=== PATIENT | female | born 1985 ===

== ENCOUNTER 2020-03-29 22:19 | Outpatient (REF) | payer OTHER, SELFPAY ==
[2020-03-29 21:54] LABS: ESR 5 mm/hr (0-20)
[2020-03-30 17:54] LABS: CRP, High Sensitivity 0.38 mg/L (See Note); Rheumatoid Factor <8.6 IU/mL (<12.0)
[2020-04-02 14:35] LABS: ANA Interpretation Positive (Negative); ANA Titer Pattern 1:320 Homogeneous
== END 2020-03-29 22:39 ==
LOC: NCHCN 22:19
PROVIDERS: Visit Provider Nurse Practitioner Family
DX: M19.90 Unspecified osteoarthritis, unspecified site (principal)
CPT/HCPCS: 85652; 86141; 86038; 86431